=== PATIENT | male | born 1985 | race Caucasian/White ===

== ENCOUNTER 2017-08-07 14:59 | Emergency (ER) | payer BC ==
[2017-08-07 15:34] VITALS: BP 132/77
--- NOTE | 2017-08-07 15:42 | UC ---
Nausea/Vomiting/Diarrhea HPI - HPI Summary HPI Summary: pt reports feeling off sunday night. sunday am developed diarrhea which continues. admits to cramping with diarrhea but otherwise no pain. no travel hx , antibiotic use or raw seafood consumption. today had some n/v that has resolved. able to take po fluids. no fever or passing blood. No IBD. Is feeling imrpoved today. - History of Current Complaint Chief Complaint: UCGI Stated Complaint: NAUSEA, DIARRHEA, LOSS OF APPETITE Time Seen by Provider: 08/07/17 15:35 Hx Obtained From: Patient Onset/Duration: Gradual Onset Pain Intensity: 0 Aggravating Factor(s): Food Alleviating Factor(s): Nothing - Risk Factors Influenza Risk Factors: Negative - Allergies/Home Medications Allergies/Adverse Reactions: Allergies Allergy/AdvReac Type Severity Reaction Status Date / Time No Known Allergies Allergy Verified 08/07/17 15:34 Home Medications: Home Medications NK [No Home Medications Reported] 08/07/17 [History Confirmed 08/07/17] PMH/Surg Hx/FS Hx/Imm Hx Previously Healthy: Yes - Surgical History Surgical History: Yes Surgery Procedure, Year, and Place: knee surgery in high school - Social History Occupation: Employed Full-time Lives: With Family Alcohol Use: Rare Substance Use Type: None Smoking Status (MU): Heavy Every Day Tobacco Smoker - Immunization History Vaccination Up to Date: Yes Review of Systems Constitutional: Negative Skin: Negative Eyes: Negative ENT: Negative Respiratory: Negative Cardiovascular: Negative Gastrointestinal: Vomiting, Diarrhea, Nausea Genitourinary: Negative Motor: Negative Neurovascular: Negative Musculoskeletal: Negative Neurological: Negative Psychological: Negative Is Patient Immunocompromised?: No All Other Systems Reviewed And Are Negative: Yes Physical Exam Triage Information Reviewed: Yes Appearance: Well-Appearing Vital Signs: Initial Vital Signs Temp 99.4 F 08/07/17 15:29 Pulse 73 08/07/17 15:29 Resp 16 08/07/17 15:29 BP 132/77 08/07/17 15:29 Pulse Ox 100 08/07/17 15:29 Eye Exam: Normal ENT: Positive: Normal ENT inspection Neck: Positive: Supple, Nontender, No Lymphadenopathy Respiratory: Positive: Lungs clear, Normal breath sounds Cardiovascular: Positive: RRR, No Murmur Abdomen Description: Positive: Nontender, No Organomegaly, Soft. Negative: CVA Tenderness (R), CVA Tenderness (L), Distended, Guarding Bowel Sounds: Positive: Present Musculoskeletal: Positive: ROM Intact Neurological: Positive: Alert Psychological: Positive: Age Appropriate Behavior Skin Exam: Normal Naus/Vom/Diarrhea Course/Dx - Course Course Of Treatment: non toxic, no acute abdomen, s/s's improving. no risk c- diff colitis or parasite infection. tx supportive. - Differential Dx/Diagnosis Condition At Discharge: Stable Discharge - Sign-Out/Discharge Documenting (check all that apply): Discharge - Discharge Plan Condition: Stable Disposition: HOME Patient Education Materials: Acute Nausea and Vomiting (ED), Acute Diarrhea (ED ) Forms: *Work Release Referrals: GWEN Perez [Medical Doctor] - 7 Days - Billing Disposition and Condition Condition: STABLE Disposition: HOME
== END 2017-08-07 15:52 | disposition home or self-care (01) ==
LOC: UCCORT 14:59
DX: R19.7 Diarrhea, unspecified (principal); F17.200 Nicotine dependence, unspecified, uncomplicated
CPT/HCPCS: 99201; G0463

== ENCOUNTER 2018-04-05 09:13 | Emergency (ER) | payer BC ==
[2018-04-05 09:38] VITALS: BP 162/89
--- NOTE | 2018-04-05 10:33 | UC ---
UC General HPI - HPI Summary HPI Summary: PT C/O PAIN TO HER L LOWER ANTERIOR MOLAR FOR PAST FEW DAYS. CHIPPED ABOUT 1 YEAR AGO AND HAS EPISODES OF PAIN. NO SWELLING. DENTAL APPOINTMENT THIS COMING SUNDAY, ADVISED TO GET AN ANTIBIOTIC PRIOR. - History of Current Complaint Chief Complaint: UCDentalProblem Stated Complaint: TOOTH COMPLAINT Time Seen by Provider: 04/05/18 10:25 Hx Obtained From: Patient Timing: Constant Pain Intensity: 4 Aggravating: NOTHING Associated Signs & Symptoms: Negative: Edema, Fever - Allergy/Home Medications Allergies/Adverse Reactions: Allergies Allergy/AdvReac Type Severity Reaction Status Date / Time No Known Allergies Allergy Verified 04/05/18 09:38 Home Medications: Home Medications Acetaminophen [Acetaminophen Extra Strength] 1,000 mg PO ONCE 04/05/18 [History Confirmed 04/05/18] PMH/Surg Hx/FS Hx/Imm Hx Cardiovascular History: Hypertension - KNOWN HX, OPTS NOT TO TX - Surgical History Surgical History: Yes Surgery Procedure, Year, and Place: knee surgery in high school - Family History Known Family History: Positive: Non-Contributory - Social History Occupation: Employed Full-time Alcohol Use: Occasionally Substance Use Type: None Smoking Status (MU): Former Smoker When Did the Patient Quit Smoking/Using Tobacco: 09/2017 - Immunization History Vaccination Up to Date: Yes Review of Systems All Other Systems Reviewed And Are Negative: Yes Constitutional: Positive: Negative Skin: Positive: Negative Eyes: Positive: Negative ENT: Positive: Dental Pain Respiratory: Positive: Negative Cardiovascular: Positive: Negative Gastrointestinal: Positive: Negative Genitourinary: Positive: Negative Motor: Positive: Negative Neurovascular: Positive: Negative Musculoskeletal: Positive: Negative Neurological: Positive: Negative Psychological: Positive: Negative Physical Exam Triage Information Reviewed: Yes Appearance: Well-Appearing Vital Signs: Initial Vital Signs Temp 98 F 04/05/18 09:32 Pulse 73 04/05/18 09:32 Resp 16 04/05/18 09:32 BP 162/89 04/05/18 09:32 Pulse Ox 100 04/05/18 09:32 Vital Signs Reviewed: Yes Eyes: Positive: Conjunctiva Clear ENT: Positive: Pharynx normal, TMs normal. Negative: Nasal congestion, Nasal drainage Dental: Positive: Other: - OVERT FX L LOWER ANTERIOR MOLAR NOT SEEN. Negative: Percussion Tenderness @, Gross Decay/Caries @, Abscess @ Neck: Positive: Supple, Nontender, No Lymphadenopathy Respiratory: Positive: Lungs clear, Normal breath sounds Cardiovascular: Positive: RRR, No Murmur Abdomen Description: Positive: Nontender, No Organomegaly, Soft Bowel Sounds: Positive: Present Musculoskeletal: Positive: ROM Intact Neurological: Positive: Alert Psychological: Positive: Age Appropriate Behavior Skin Exam: Normal Course/Dx - Differential Dx - Multi-Symptom Provider Diagnoses: L LOWER ANTERIOR MOLAR PAIN Discharge - Sign-Out/Discharge Documenting (check all that apply): Patient Departure All imaging exams completed and their final reports reviewed: No Studies - Discharge Plan Condition: Stable Disposition: HOME Prescriptions: Amoxicillin 875 mg PO BID 10 Days #20 tablet Naproxen [Naprosyn 500 mg tab] 500 mg PO BID 5 Days #10 tablet Patient Education Materials: Toothache (ED) Referrals: No Primary Care Phys,NOPCP [Primary Care Provider] - Additional Instructions: FOLLOW UP WITH YOUR DENTIST IN [place] SCHEDULED FOR THIS SUNDAY. - Billing Disposition and Condition Condition: STABLE Disposition: Home - Attestation Statements Provider Attestation: Per institutional requirements, I have reviewed the chart, however, I was not consulted specifically or made aware of this patient by the midlevel provider. I did not personally evaluate, interact with , or disposition this patient.
== END 2018-04-05 10:41 | disposition home or self-care (01) ==
LOC: UCCORT 09:13
DX: K08.89 Other specified disorders of teeth and supporting structures (principal); I10 Essential (primary) hypertension; Z87.891 Personal history of nicotine dependence
CPT/HCPCS: 99212; G0463